=== PATIENT | female | born 1970 | race Caucasian/White ===

== ENCOUNTER 2024-12-13 09:35 | Emergency (ER) | payer OTHER, SELFPAY ==
[2024-12-13 09:52] VITALS: BP 117/64; PULSE 66; RESP 18; TEMP 36.7; O2SAT 100
--- NOTE | 2024-12-13 10:03 | ED.BACK ---
HPI - Back Pain/Injury General Chief Complaint: Back Pain/Injury Stated Complaint: Back Pain Time Seen by Provider: 12/13/24 10:03 Source: patient and RN notes reviewed Mode of arrival: ambulatory Limitations: no limitations History of Present Illness HPI Narrative: 54-year-old female presents with concern for right low back pain that radiates down bilateral buttocks in her upper legs. Reports it happened after she lifted heavy pot on Friday. She reports she has had similar pain in the past but it is worse this time it has been before. She denies loss of bowel or bladder function, perianal anesthesia, weakness in any extremity. She denies abdominal pain or fever. MD elicited complaint: back pain Related Data Home Medications ?Medication ?Instructions ?Recorded ?Confirmed ?Last Taken ?Type antiarthritic combination no.2 900 mg PO DAILY 12/23/19 04/15/23 Unknown History mg tablet (glucosamine-chondroitin) calcium carbonate 260 mg PO DAILY 12/23/19 04/15/23 Unknown History cholecalciferol (vitamin D3) 50 2,000 unit PO DAILY 12/23/19 04/15/23 Unknown History mcg (2,000 unit) capsule multivitamin 1 tablet PO DAILY 12/23/19 04/15/23 Unknown History vitamin B complex (Super B-50 1 cap PO DAILY 12/23/19 04/15/23 Unknown History Complex capsule) Allergies Allergy/AdvReac Type Severity Reaction Status Date / Time No Known Allergies Allergy Verified 12/13/24 10:02 Review of Systems Review of Systems: CONSTITUTIONAL: Denies malaise, chills, sweats, or fever. CARDIOVASCULAR: Denies chest pain, palpitations, or edema. RESPIRATORY: Denies cough or dyspnea. GASTROINTESTINAL: Denies abdominal pain, nausea, vomiting, diarrhea, loss of bowel function GENITOURINARY: Denies dysuria, hematuria, frequency, loss of bladder function. SKIN: Denies rash or itching. MUSCULOSKELETAL: Reports low back pain NEUROLOGIC: Denies numbness, weakness, or headache. All systems reviewed & are unremarkable except as noted in HPI and below PMFSH Past Medical History Medical History (Updated 12/13/24 @ 10:11 by Anusha Miner APRN) Breast asymmetry Orthostasis Family History Family History Father Family history of migraine headaches Family history of elevated blood lipids Malignant neoplasm of prostate Sibling Hypertension Mother Patient's mother is in good health Family history of hypercholesterolemia Social History Social History Smoking status: Never smoker Alcohol intake: current Lack of Transportation: No Lack of Food: Never True Current Housing: I Have Housing Concerned About Future Housing: No Difficulty Paying Gas/Electric Bills: No Difficulty Paying for Meds: No Currently Unemployed: No Education: Associate Degree Difficulty w/ Childcare or Family Care: No Comments At time of signature, agree with nursing past medical, surgical, social and family history. There is no relevant family history pertinent to the presenting complaint Exam Narrative: GENERAL: Well-appearing, well-nourished, and in no acute distress. HEAD: Normocephalic, atraumatic. EYES: PERRLA and EOMI. NECK: Supple. No lymphadenopathy. CHEST: Clear to auscultation. No respiratory distress. HEART: Regular rate and rhythm. Distal pulses palpable and equal, cap refill <3 seconds ABDOMEN: Soft, nontender, nondistended, normal active bowel sounds, no palpable or pulsatile masses. No CVA tenderness MUSCULOSKELETAL: Grossly Normal range of motion and strength in all extremities; 5/5 strength with hip flexion and extension, dorsiflexion and extension, knee flexion and extension, plantar flexion and extension. Normal sensation in dermatomal distributions with sensitivity to light touch and pain. No midline back tenderness to palpation. No paraspinal tenderness. SKIN: Warm, dry, no rash. NEURO: No focal deficits. Alert and oriented x3. PSYCH: Normal mood and affect Course Course Emergency Course: Patient is aware of diagnosis, understands and agrees to treatment plan. Anticipatory guidance given. Patient agrees to follow-up as directed and is aware of reasons to seek care at the emergency department. Portions of this record may have been created with voice recognition software Level of Care: Express Care Visit Vital Signs Vital signs: Vital Signs Temperature 98.0 F 12/13/24 09:52 Pulse Rate 66 12/13/24 09:52 Respiratory Rate 18 12/13/24 09:52 Blood Pressure 117/64 12/13/24 09:52 Pulse Oximetry 100 12/13/24 09:52 Oxygen Delivery Room Air 12/13/24 09:52 Temperature 98.0 F 12/13/24 09:52 Pulse Rate 66 12/13/24 09:52 Respiratory Rate 18 12/13/24 09:52 Blood Pressure 117/64 12/13/24 09:52 Pulse Oximetry 100 12/13/24 09:52 Oxygen Delivery Room Air 12/13/24 09:52 Reviewed. MDM - Back Pain/Injury MDM Narrative Medical decision making narrative: I evaluated this in the [facility]. History is obtained from patient who is an independent historian and physical exam was performed.? Available medical records were reviewed. ? Exam findings and relevant testing show no acute concerns or changes; patient is non-toxic appearing and is in no distress. No risk factors or findings concerning for epidural abscess, diskitis, vertebral osteomyelitis, cord compression, cauda equina, vertebral fracture or bone malignancy, AAA, or pyelonephritis. Patient instructed to consider further imaging and workup through their primary care physician as an outpatient if symptoms persist. ? Differential diagnosis and treatment plan were discussed with the patient. Patient agrees with discussion and after shared medical decision making agrees with plan of care. All questions were answered to the patient's satisfaction. Patient is going to make an appoint with her primary care provider for further evaluationPatient is appropriate for outpatient treatment and follow-up. Critical Care Time Critical Care Time Critical Care Time: No Discharge Plan Discharge Clinical Impression: Nonspecific low back pain Patient Disposition: Home Condition: Stable Instructions: Acute Low Back Pain (ED) Additional Instructions: Please follow up with your Primary Care Doctor within 48-72 hours - call for an appointment. Walking and other gentle exercising several times a week has been shown to improve back pain; bed rest is not recommended. Take prednisone as directed, take muscle relaxers every 8 hours as needed for muscle spasm- do not drive or make any important decisions while on this medication for it can make you drowsy. You may apply heat or cold to the area as needed. If you experience any worsening pain, swelling, numbness, weakness please go to ER. Contact your doctor or go to the emergency department if you develop problems with bladder or bowel function, weakness or loss of feeling in one or both of your legs, or any other serious concerns. Patient Language: Citizen Of [place] Prescriptions: New cyclobenzaprine 10 mg tablet 10 mg PO TID PRN (Reason: muscle spasm) Qty: 20 0RF prednisone 50 mg tablet 50 mg PO DAILY 5 Days Qty: 5 0RF No Action cholecalciferol (vitamin D3) 50 mcg (2,000 unit) capsule 2,000 unit PO DAILY multivitamin Tablet 1 tablet PO DAILY vitamin B complex [Super B-50 Complex] Capsule 1 cap PO DAILY glucosamine-chondroitin 900 mg tablet PO DAILY calcium carbonate 260 mg calcium (648 mg) tablet 260 mg PO DAILY Follow-up/Referrals: Chucky Jackson, DO [Primary Care Provider, Internal Medicine] Stand Alone Forms: Work/School Release IP Time of Disposition: 10:13
== END 2024-12-13 10:18 | disposition home or self-care (01) ==
PROVIDERS: Emergency Provider Nurse Practitioner; PCP Internal Medicine
DX: M54.50 Low back pain, unspecified (principal)
CPT/HCPCS: 99213; G0463